=== PATIENT | female | born 1985 | race Caucasian/White ===

== ENCOUNTER 2019-07-30 12:39 | Emergency (ER) | payer OTHER ==
[~2019-07-30] VITALS: Ht 160 cm; Wt 74.8 kg
[2019-07-30 13:47] LABS: BASOPHILS 0.3 % (0.0-2.0); EOSINOPHILS 0.1 % (0.0-3.0); HEMATOCRIT 39.2 % (37.0-47.0); HEMOGLOBIN 13.1 gm/dL (12.0-15.0); MCH 30.9 pg (26.0-34.0); MCHC 33.5 g/dL (28.0-37.0); MCV 92.3 fL (80.0-100.0); PLATELET COUNT 171 thou/uL (150-400); POLYS 88.6 % (36.0-66.0); RBC 4.24 mil/uL (4.20-5.00); RDW 14.4 % (10.5-14.5); WBC 19.2 thou/uL (4.0-11.0)
[2019-07-30 14:08] LABS: CALCIUM 9.3 mg/dL (8.5-10.1); CREATININE 0.9 mg/dL (0.6-1.0); POTASSIUM 3.4 mmol/L (3.5-5.1)
[2019-07-30 14:13] LABS: ALBUMIN 3.3 g/dL (3.4-5.0); DIRECT BILIRUBIN 0.3 mg/dL (<0.1-0.2); TOTAL BILIRUBIN 0.8 mg/dL (<0.1-1.0); TOTAL PROTEIN 7.1 g/dL (6.4-8.2)
[2019-07-30] MEDS ORDERED: ZOFRAN ODT4 MG PO (14:44)
[2019-07-30] MEDS ORDERED: MOBIC15 MG PO (14:44)
[2019-07-30 15:02] VITALS: BP 122/79
--- NOTE | 2019-07-31 09:02 | EKG ---
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[facility] : 1985 Requested By: Hortencia Arango Order Number: [id number] MD: Holger Webb Measurements Intervals [place] Rate: 118 P: 57 DC: 130 QRS: 76 QRSD: 85 T: 22 QT: 278 QTc: 390 Interpretive Statements Sinus tachycardia Otherwise no significant abnormality No previous ECG available for comparison Electronically Signed On 07-31-2019 9:01:33 CDT by Holger Webb [email or web address] <ELECTRONICALLY SIGNED> By: Holger Webb MD, [facility] 07/31/19 0901 1248 [id number] Holger Webb MD, FACC /EPI
== END 2019-07-30 15:02 | disposition home or self-care (01) ==
LOC: ER 12:39
PROVIDERS: Emergency Medicine
DX: J11.1 Influenza due to unidentified influenza virus with other respiratory manifestations (principal); J45.909 Unspecified asthma, uncomplicated; R11.10 Vomiting, unspecified